=== PATIENT | male | born 2005 | race Two or more races ===

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

== ENCOUNTER 2025-04-25 12:20 | Emergency (ER) | payer MEDICAID, SELFPAY ==
[2025-04-25 12:21] VITALS: BMI 22.4
[2025-04-25 13:45] VITALS: BP 155/94; PULSE 73; RESP 20; TEMP 37.1; O2SAT 98
--- NOTE | 2025-04-25 13:46 | EDNOTE_ITS ---
ED Anxiety RME/HPI General Chief Complaint: General Adult/Misc Complain Stated Complaint: JITTERY FOR FEW DAYS THINKS REACTION TO MED Time Seen by Provider: 04/25/25 13:46 Arrival date/time: 04/25/25 12:20 RME / HPI RME / HPI narrative: See [facility] for Dr. Reaves's HPI Documentation. Related Data Previous Rx's ?Medication ?Instructions ?Recorded albuterol sulfate 90 mcg/actuation 2 puff inhalation Q ID PRN 11/03/19 aerosol inhaler shortness of breath or wheez ing #18 grams alprazolam 0.5 mg tablet (Xanax) 0.5 mg PO BID PRN anx iety #20 tabs 04/25/25 Allergies Allergy/AdvReac Type Severity Reaction Status Date / Time No Known Allergies Allergy Verified 04/25/25 12:23 Review of Systems Review of Systems Systems Reviewed: All systems reviewed, normal except as documented Past Medical History Social History SMOKING STATUS: Current every day smoker SUBSTANCE USE: marijuana ALCOHOL: Current ED Exam Narrative Physical exam: See [facility] for Dr. Reaves's HPI Documentation. Course Quality Measures none Vital Signs Vital signs: Vital Signs Temperature 98.7 F 04/25/25 13:45 Pulse Rate 73 04/25/25 13:45 Respiratory Rate 20 04/25/25 13:45 Blood Pressure 155/94 H 04/25/25 13:45 Pulse Oximetry (%) 98 04/25/25 13:45 Oxygen Delivery Method Room Air 04/25/25 13:45 Anxiety [facility] Narrative [facility] Narrative: This section includes all my notes and documentations, including HPI, PE, and ED course. Vinh Reaves MD HPI: 20-year-old male here with possible anxiety symptoms. He reports episodes of varying symptoms in the past few weeks. Concerned they may be related to his medications. Symptoms can include intense fear, pounding and racing heart, sweating, chills, shaking, trouble breathing, chest pain, stomach pain, nausea, numbness and tingling in the hands and feet and face, confusion, hot flashes, and feeling faint. No other complaints. ROS: All negative except as documented in HPI. Physical Exam: General: Alert and oriented. No acute distress when remaining still. Eyes: Conjunctivae and lids clear. ENT: No nasal congestion. Neck: Supple. Heart: RRR. Lungs: No respiratory distress. Good air movement. No rhonchi, wheezing, rales. Abdomen: Soft and nontender. Normal bowel sounds. No distension. No rebound or guarding. Back: No CVA tenderness. Skin: Warm and dry. Neuro: Alert and oriented X 3. Prescribed a trial of Xanax and recommended outpatient follow-up. Based on my best medical judgment, made decision no further evaluation or treatment indicated at this time. Patient understands and agrees to the discharge instructions customized and printed, see below. Discharge Instructions from Dr. Reaves printed for you: 1. Use Xanax for possible side effects of your medications. Avoid more than 2-3 times per week, to prevent dependence. 2. See your private doctor on 04/26/2025 for recheck and further care, including second opinion. 3. Seek immediate medical care with worsening or with any concerns. Vinh Reaves MD Patient data External records reviewed:: [facility] previous records Clinical information provided by:: patient Social determinants that could affect healthcare access:: substance use (marijuana and also alcohol use) Patient has the following chronic illnesses:: No known PMHx, surgeries, daily medications, or known allergies. How is presenting disease/condition affected by chronic disease/condition?: no chronic disease Evaluation data The following diagnostics were reviewed and interpreted by me:: other (specify) (none) Lab and/or radiology exams considered but not ordered:: none Interpretation Summary: n/a Medications / Prescriptions Medications or Prescriptions considered but not ordered:: none Medication administrations:: none Consultations Consultation(s) initiated? (list below): No Diagnosis Differential diagnosis anxiety: hyperventilation, panic disorder and acute anxiety Most likely diagnosis given after review of the tests above:: Drug side effects Admission Indicated Admission indicated?: not indicated Explain why admission is indicated or not indicated:: With no condition needing emergent intervention, there was no indication for admission. Admission Request Was there a request for admission?: No Disposition Plan Disposition Plan: Discharge Discharge Attestation Discharge Attestation: The patient and all family members were given an opportunity to ask questions and understood the discharge instructions. Discharge instructions specifically effects, indications for sooner follow up or return to the emergency department, and the expected course of current diagnosis. Patient condition: Stable Discharge Plan Plan Patient Disposition: HOME (Self Care) Prescriptions/Referrals Prescriptions/Med Rec: New alprazolam [Xanax] 0.5 mg tablet 0.5 mg PO BID PRN (Reason: anxiety) Qty: 20 0RF No Action albuterol sulfate 90 mcg/actuation HFA aerosol inhaler 2 puff IH QID PRN (Reason: shortness of breath or wheezing) Qty: 18 0RF Problem List Clinical Impression: Drug side effects Patient/Caregiver Discharge Instructions Discharge Activity: activity as tolerated Education Materials: ED Medicine Reaction: Allergic Additional Instructions: Discharge Instructions from Dr. Reaves printed for you: 1. Use Xanax for possible side effects of your medications. Avoid more than 2-3 times per week, to prevent dependence. 2. See your private doctor on 04/26/2025 for recheck and further care, including second opinion. 3. Seek immediate medical care with worsening or with any concerns. Print Language: Argentine Stand Alone Forms: [facility] Award Info., Patient Portal Info Letter
== END 2025-04-25 13:59 | disposition home or self-care (01) ==
PROVIDERS: Emergency Provider Surgery
DX: R00.0 Tachycardia, unspecified (principal); R68.83 Chills (without fever); R07.9 Chest pain, unspecified; R06.00 Dyspnea, unspecified; R10.9 Unspecified abdominal pain; R11.0 Nausea; R20.0 Anesthesia of skin; R41.0 Disorientation, unspecified; R55 Syncope and collapse; R20.2 Paresthesia of skin; T50.915A Adverse effect of multiple unspecified drugs, medicaments and biological substances, initial encounter
CPT/HCPCS: 99281